=== PATIENT | female | born 1975 | race Caucasian/White ===

== ENCOUNTER → 2016-10-04 | Outpatient (CLI) | payer OTHER, MEDICARE ==
[~2016-10-04] MED LIST: ALBUTEROL17 GM INH; ALPRAZOLAM PO; AMBIEN PO; ANUSOL-HC21 GM PR; ASPIRIN81 MG PO; CARAFATE PO; CARAFATE1 G PO; COREG PO; CRESTOR PO; CRESTOR5 MG; DEXFOL PO; EFFEXOR PO; ESTRACE0.5 MG PO; FLEXERIL10 MG; FLEXERIL10 MG PO; IBUPROFEN800 MG PO; KLONOPIN PO; LAMICTAL PO; LASIX PO; LEXAPRO PO; LISINOPRIL PO; METOCLOPRAMIDE H5 MG PO; NEURONTIN PO; NEXIUM PO; OMEPRAZOLE40 MG; PREVACID PO; PRILOSEC PO; PROTONIX PO; PROZAC PO; REGLAN PO; ROBITUSSIN ALL118 ML PO; SYNTHROID PO; SYNTHROID112 MCG; VITAMIN B-650 MG PO; ZITHROMAX PO
[2016-10-04 07:01] LABS: INR 1.5; PROTHROMBIN TIME (PATIENT) 16.7 SECONDS (10.0-11.7)
== END | disposition home or self-care (01) ==
LOC: CSSDAY 06:17
PROVIDERS: Dentist Oral and Maxillofacial Surgery
DX: Z29.8 Encounter for other specified prophylactic measures (principal); Z95.2 Presence of prosthetic heart valve
CPT/HCPCS: 36415; 85610; 96365; J0290